=== PATIENT | male | born 2000 | race Caucasian/White ===

== ENCOUNTER 2021-08-28 13:39 | Emergency (ER) | payer BC ==
[~2021-08-28] VITALS: Ht 182.9 cm; Wt 79.5 kg
[2021-08-28 13:46] VITALS: BP 124/76; TEMP 98.2
[2021-08-28 15:15] VITALS: PULSE 62
== END 2021-08-28 15:15 | disposition home or self-care (01) ==
LOC: COL.ER 13:39
DX: S62.327A Displaced fracture of shaft of fifth metacarpal bone, left hand, initial encounter for closed fracture (principal); W22.01XA Walked into wall, initial encounter